=== PATIENT | male | born 2000 | race Caucasian/White ===

== ENCOUNTER 2023-06-09 16:46 | Emergency (ER) | payer OTHER, SELFPAY ==
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
[2023-06-09 16:56] VITALS: BP 130/85; PULSE 91; RESP 16; TEMP 36.8; O2SAT 100; BMI 24.1
--- NOTE | 2023-06-09 17:12 | PC.NURSE ---
placed in c collar. pt ambulating from WR independently with no issue. denies dizziness, nausea, paresthesias.
[2023-06-09 17:39] VITALS: BP 123/67; PULSE 75; RESP 13; O2SAT 98
--- NOTE | 2023-06-09 19:11 | PC.NURSE ---
This RN took over pt assignment @ 1900. Medication not given, Pt refused medication. Gf at bedside. Pt remains in CT collar Plan of care ongoing.
--- NOTE | 2023-06-09 19:15 | PC.NURSE ---
Pt ca&ox4, no signs of distres. Pt sitting in bed comfortably Pt asking about CT and xray results, this RN advised still waiting on results. This RN offered other pain meds like tylenol, pt refusing all pain meds. Plan of care ongoing.
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
--- NOTE | 2023-06-09 19:45 | PC.NURSE ---
Pt ambulated with a steady gait from room to RN station. Pt asking for results of CT of head and clavicle. Pt advised CT scan does not show a fracture. Plan of care ongoing.
--- NOTE | 2023-06-09 19:56 | PC.NURSE ---
Pt left arm placed in sling per provider Anwer request by injection molding process technicianisaias Martinez. Plan of care ongoing.
== END 2023-06-09 20:04 | disposition home or self-care (01) ==
PROVIDERS: Emergency Provider Internal Medicine
DX: S42.032A Displaced fracture of lateral end of left clavicle, initial encounter for closed fracture (principal); V86.56XA Driver of dirt bike or motor/cross bike injured in nontraffic accident, initial encounter; Y93.89 Activity, other specified; Y92.9 Unspecified place or not applicable; Y99.9 Unspecified external cause status
CPT/HCPCS: 70450; 71045; 72125; 73000; 99284